=== PATIENT | female | born 1995 ===

== ENCOUNTER 2017-01-22 19:58 | Emergency (ER) | payer BC ==
[~2017-01-22] VITALS: Ht 157.5 cm; Wt 62.0 kg
[2017-01-22 20:02] VITALS: TEMP 36.8; Ht 157.5 cm; Wt 62.0 kg
[2017-01-22] MEDS ORDERED: BCPILLS PO (20:08)
--- NOTE | 2017-01-22 20:24 | EMERGENCY ROOM VISIT NOTE ---
History First contact with patient: 20:05 Chief Complaint: FOOT PAIN Stated Complaint: FOOT PAIN, CANNOT WALK ON IT,SWOLLEN History of Present Illness The patient is a 21 year old female who presents to the Emergency Room via private vehicle accompanied by female with complaints of "foot pain, cannot walk on it, swollen". The patient states that around 11 AM today she was walking in the parking lot of her residence, when she was wearing flat shoes, and struck the foot off of the sidewalk region causing her left foot to "wobble ". And developed pain on both sides. She then states that she has had trouble putting weight on the foot and notes pain also in the ankle. She points to the left foot on the medial aspect is location of the pain that she rates as a 5/10 at rest and 8/10 with weightbearing. She denies any chance of . Review of Systems A complete 6-point Review of Systems was discussed with the patient, with pertinent positives and negatives listed in the History of Present Illness. All remaining Review of Systems questions can be considered negative unless otherwise specified. Past Medical/Surgical History No pertinent past medical history at this time. Family History No pertinent family history at this time. Social History Smoking Status: Never Smoker Social History: Patient lives locally. Current/Historical Medications Scheduled Control Pills ( Control Pills), 1 TAB PO DAILY Allergies Coded Allergies: No Known Allergies (Unverified , 01/22/17) Physical Exam Vital Signs Date Time Temp Pulse Resp B/P Pulse Ox O2 Delivery O2 Flow Rate FiO2 01/22/17 21:52 90 18 121/84 99 Room Air 01/22/17 20:02 36.8 67 16 149/84 96 Room Air Physical Exam VITAL SIGNS - Vital signs and nursing notes were reviewed. GENERAL -21-year-old female appearing her stated age who is in no acute distress. Communicates well with provider and answers questions appropriately. SKIN - Without rashes. The skin overlying the left ankle and foot is unremarkable. EXTREMITIES - No clubbing or peripheral cyanosis. No pretibial edema present. Patient is neurovascularly intact in the left foot and ankle. Near full range of motion of the left foot and ankle. +5/5 strength noted in UE/LE bilaterally. There is tenderness to palpation overlying the ankle both medially and laterally as well as the medial portion of the left foot. There is no tenderness of the knee, or holland. Medical Decision & Procedures ER Provider Diagnostic Interpretation: LEFT ANKLE 3 VIEWS, LEFT FOOT 3 VIEWS HISTORY: Left foot pain. Fall, left ankle pain COMPARISON: None. FINDINGS: There is no fracture or dislocation. Soft tissues are unremarkable. No radiopaque foreign bodies. Incidental note is made of an os navicularis. IMPRESSION: No fractures. Electronically signed by: José Miguel Adan M.D. 01/22/2017 8:56 PM Dictated Date/Time: 01/22/2017 8:54 PM Medical Decision Patient was seen and evaluated as above. After obtaining a thorough history and physical examination radiographs were obtained of the affected region as indicated. Patient denied chance of . Radiograph results as above. I agree with radiologist findings. Patient likely has a contusion of the foot secondary to trauma with potential minimal sprain. The main portion of the pain is within the foot therefore she'll be fitted with a postop shoe and fitted with crutches. This is to help her be nonweightbearing and to allow the foot/ankle to heal. She was provided number for an orthopedic surgeon, and was educated upon management. She was educated upon worrisome symptoms which to return, had questions answered prior to discharge and was discharged home in good condition. In the evaluation and treatment of this patient, the following differential diagnoses were considered: Ankle Fracture, Ankle Sprain, Distal Fibula Fracture , Distal Tibia Fracture, Foot Fracture, [place] Fracture, among others. Impression Primary Impression: Foot pain Departure Information Dispostion Home / Self-Care Condition GOOD Referrals No Doctor, Assigned (PCP) Perez Blum M.D. Patient Instructions [facility] Additional Instructions You have been treated in the Emergency Department for a foot/ankle pain. For pain control, you can use the following [id number] medicines (if >12 yo): - Regular strength (325mg/tab) Tylenol (acetaminophen) 2 tabs every 4-6 hours as needed. Do not exceed 12 tablets in a 24 hour period. Avoid taking more than 3 grams (3000 mg) of Tylenol per day. This includes any other sources of acetaminophen you may take on a regular basis. - Regular strength (200 mg/tab) Advil (ibuprofen) 1-2 tabs every 4-6 hours as needed. Do not exceed a dose of 3200 mg per day. If this is a recent injury (<24 hrs), ice can be applied to the area of pain for the first 3 days to help decrease pain and inflammation. You have been provided the number for an Orthopaedic Surgeon. You should call this number as soon as possible to establish a follow-up visit from today's Emergency Department visit. Keep the ankle brace/splint in place until cleared by Orthopedics. Use the crutches you have been provided to keep ALL weight off of the ankle until weight bearing is tolerable. Return to the Emergency Department if your current symptoms worsen despite treatment course outlined above, or if you develop any of the following symptoms : intractable pain despite aforementioned treatment course or new onset of numbness or tingling of the foot. Please return to the emergency department with any new/concerning symptoms.
--- NOTE | 2017-01-22 20:58 | DIAGNOSTIC IMAGING REPORT ---
LEFT ANKLE 3 VIEWS, LEFT FOOT 3 VIEWS HISTORY: Left foot pain. Fall, left ankle pain COMPARISON: None. FINDINGS: There is no fracture or dislocation. Soft tissues are unremarkable. No radiopaque foreign bodies. Incidental note is made of an os navicularis. IMPRESSION: No fractures. Electronically signed by: José Miguel Adan M.D. 01/22/2017 8:56 PM Dictated Date/Time: 01/22/2017 8:54 PM
[2017-01-22 21:52] VITALS: BP 121/84; PULSE 90; O2SAT 99
== END 2017-01-22 22:16 | disposition home or self-care (01) ==
LOC: C.EDB 20:02 → C.EDD 22:16
DX: M79.672 Pain in left foot (principal); Z79.3 Long term (current) use of hormonal contraceptives